=== PATIENT | female | born 1960 | race Caucasian/White ===

== ENCOUNTER 2017-07-14 08:56 | Outpatient (RCR) | payer OTHER, SELFPAY ==
--- NOTE | 2017-07-14 19:07 | HP.SP.AD ---
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 - Pain Is pain an issue with your current prescribed condition?: No Subjective Voice - Intubation Was the Client intubated: Yes If yes, list date, duration, and explanation: Reports intubation on 8 separate occasions for surgical intervention from 1996 to 2008. - Intake Coffee (ounces): 48 - Alcoholic Beverage Intake Intake: Rarely - Other Product Usage Do you use products containing menthol (if yes, list): No Do you use recreational drugs (if yes, list type/amt/frequency): No Voice Handicap Index (VHI) - VHI VHI Administered: Yes VHI: Patient completed the Voice Handicap Index, which is a 30 item, self administered questionnaire that asks an individual to describe their voice and the effects of their voice on their life. Three subscales cover the areas of functional, emotional, and physical aspects of the voice disorders. Points from the questions can be combined to assign a total score, or they can be combined by subscale. Results for the VHI are as follows: Date: 07/14/17 - VHI Test Functional: Subtotal: 26 Physical: Subtotal: 34 Emotional: Subtotal: 3 Total Severity Rating: Severe (61-120) - Comments Patient further completed the Reflux Symptom Index (RSI) with a score of 17 (13 and above is considered positive) -: . Plan - Plan Plan: Overall good vocal quality during assessment, intermittent throat clearing leading to brief dysphonia / aphonia that quickly resolved, significant reduction in frequency reported by Patient since increase in omeprazole. Patient currently reports no issues with vocalizations over the past 2 weeks following adjustments in medication regimen. Will recommend an additional follow up session to ensure continued presentation, with adjustment in plan of care if indicated. - Recommendations MBS: No Treatment Warranted: Yes - Frequency Frequency: 1x/Week Duration: 2 Weeks - Prognosis Prognosis: Excellent - Goals that are Established: Determination:: Goals will be added/modified as deemed necessary and appropriate. Therapy will be discontinued when results of re-evaluation indicate therapy is no longer needed or lack of progress has been documented. - Goal #1-5 Goal #1: Patient will maintain adequate vocal integrity over a two week period. Prompts: Min Goal #2: Goal adjustment as needed. Education - Patient Instruction Patient Education: Diagnosis, Treatment Plan Person Taught: Patient Teaching Method: Discussion Response to teaching: Verbalize understanding
== END 2017-07-14 19:00 | disposition home or self-care (01) ==
LOC: SP 08:56
PROVIDERS: Family Provider Family Medicine; PCP Family Medicine; Visit Provider Otolaryngology
DX: R49.0 Dysphonia (principal)
CPT/HCPCS: 92524